=== PATIENT | female | born 1955 | race Caucasian/White ===

== ENCOUNTER 2024-12-25 05:13 | Inpatient (IN) | payer MEDICARE, OTHER ==
--- NOTE | 2024-12-25 05:34 | ED ---
Chest Pain HPI - General Chief Complaint: Chest Pain Stated Complaint: Nstemi Time Seen by Provider: 12/25/24 05:32 Source: patient, EMS Mode of arrival: EMS Limitations: no limitations - History of Present Illness Initial Comments: This patient is a 69-year-old woman transferred here from [facility] to be evaluated for chest pain. The patient states that the pain had come on tonight when she was getting ready to go to bed. She states that it started probably between 11 and midnight. She went directly to the other hospital. The patient states that once she got there and was treated the pain decreased and it has been mild since that time. She had evaluation at the other hospital including chest x-ray that was read as probably some chronic interstitial disease, she had EKG that they did not notice a change in, and she had 2 troponins, the second of which was mildly elevated and she was therefore transferred here to have further evaluation and treatment. She does see Dr. Burch from the cardiology clinic. Currently the pain is still mild. She is not having associated symptoms. She has history of previous NM with stent placement in 2000. MD Complaint: chest pain -: hour(s) Onset: during rest Pain Location: left chest Pain Radiation: none Severity: severe Quality: aching Consistency: now resolved (Partially) Improves With: medication-other Worsens With: nothing Treatments Prior to Arrival: aspirin, nitroglycerin, oxygen, other - Related Data Home Medications Medication Instructions Recorded Confirmed Ascorbic Acid [Vitamin C] 1,000 mg PO DAILY 12/25/24 12/25/24 Cholecalciferol (Vitamin D3) 50 mcg PO DAILY 12/25/24 12/25/24 [Vitamin D3 (50 Mcg = 2000 Iu)] Fenofibrate [Lofibra] 160 mg PO DAILY 12/25/24 12/25/24 Fish Oil/Dha/Epa [Fish Oil 1,200 4 cap PO DAILY 12/25/24 12/25/24 mg Fish Oil] Fluticasone Nasal [place] [Flonase 1 spray EA NOSTRIL DAILY 12/25/24 12/25/24 Nasal [place]] Irbesartan [Avapro] 300 mg PO DAILY 12/25/24 12/25/24 Loratadine [Claritin] 10 mg PO DAILY 12/25/24 12/25/24 Magnesium 250 mg PO DAILY 12/25/24 12/25/24 Melatonin 10 mg PO HS PRN 12/25/24 12/25/24 Multivit-Min/Iron Fum/Folic AC 1 tab PO DAILY 12/25/24 12/25/24 [One-A-Day Women's Complete Tab] Zinc Gluconate [Zinc] 50 mg PO DAILY 12/25/24 12/25/24 buPROPion XL [Wellbutrin XL] 150 mg PO DAILY 12/25/24 12/25/24 metFORMIN HCL 500 mg PO BID-W/MEALS 12/25/24 12/25/24 Previous Rx's Medication Instructions Recorded Aspirin EC [Ecotrin Low Dose] 81 mg PO DAILY #90 tab 12/27/24 Atorvastatin [Lipitor] 80 mg PO HS #90 tab 12/27/24 Metoprolol Tartrate [Lopressor] 50 mg PO BID #90 tab 12/27/24 Ticagrelor [Brilinta] 90 mg PO BID #90 tab 12/27/24 Allergies Allergy/AdvReac Type Severity Reaction Status Date / Time No Known Allergies Allergy Verified 12/25/24 08:15 Review of Systems ROS Statement: Those systems with pertinent positive or pertinent negative responses have been documented in the HPI. ROS Other: All systems not noted in ROS Statement are negative. Constitutional: Denies: fever, chills Respiratory: Denies: cough, dyspnea Cardiovascular: Reports: chest pain. Denies: palpitations, orthopnea, edema, syncope Gastrointestinal: Denies: abdominal pain, nausea, vomiting, diarrhea Genitourinary: Denies: dysuria Musculoskeletal: Denies: back pain Skin: Denies: rash Neurological: Denies: headache, weakness EKG Findings - EKG Comments: EKG Findings:: Possible old anterior infarct. - EKG Results: EKG: interpreted by CARLY, sinus rhythm (Rate 79 bpm) - Blocks, [place], Hypertrophy, ST Abn: AV and intraventricular conduction: right bundle branch block (fixed/intermittent, complete/incomplete), left anterior fascicular block Past Medical History Past Medical History: COPD, Diabetes Mellitus, Hyperlipidemia, Hypertension, Myocardial Infarction ([place]) History of Any Multi-Drug Resistant Organisms: None Reported Past Surgical History: Section, Cholecystectomy, Heart Catheterization With Stent Past Psychological History: No Psychological Hx Reported Smoking Status: Current every day smoker Past Alcohol Use History: None Reported Past Drug Use History: None Reported - Past Family History Sister(s) Family Medical History: Cancer Father Family Medical History: Coronary Artery Disease (CAD), Myocardial Infarction ([place]) Mother Family Medical History: Coronary Artery Disease (CAD), Myocardial Infarction ([place]) General Exam Limitations: no limitations General appearance: alert, in no apparent distress Head exam: Present: atraumatic, normocephalic Eye exam: Present: normal appearance. Absent: scleral icterus, conjunctival injection ENT exam: Present: normal oropharynx Neck exam: Present: normal inspection Respiratory exam: Present: normal lung sounds bilaterally. Absent: respiratory distress, wheezes, rales, rhonchi, stridor, accessory muscle use Cardiovascular Exam: Present: regular rate, normal rhythm, normal heart sounds. Absent: systolic murmur, diastolic murmur, rubs, gallop GI/Abdominal exam: Present: soft. Absent: distended, tenderness, guarding, rebound, rigid, mass Extremities exam: Present: normal inspection, normal capillary refill. Absent: pedal edema, calf tenderness Back exam: Present: normal inspection. Absent: CVA tenderness (R), CVA tenderness (L) Neurological exam: Present: alert Skin exam: Present: warm, dry, intact, normal color. Absent: rash Course Vital Signs 12/25/24 12/25/24 12/25/24 05:17 08:10 10:26 Temperature 98.3 F 98.0 F 97.7 F Pulse Rate 81 86 80 Respiratory 16 14 20 Rate Blood Pressure 138/77 148/81 134/79 O2 Sat by Pulse 96 96 92 L Oximetry Chest Pain MDM - MDM Was pt. sent in by a medical professional or institution ([facility]EL [facility]all[facility], NETWORK CABLER, urgent care, hospital, or [place] health care facility...) When possible be specific @ -Yes, patient sent from the outside hospital as a transfer here Did you speak to anyone other than the patient for history (EMS, parent, family, police, friend...)? What history was obtained from this source @ -No Did you review nursing and triage notes (agree or disagree)? Why? @ -I reviewed and agree with nursing and triage notes Were old charts reviewed (outside hosp., previous admission, EMS record, old EKG, old radiological studies, urgent care reports/EKG's, [place] health care facility records)? Report findings @ -The transfer charts were reviewed Differential Diagnosis (chest pain, altered mental status, abdominal pain women, abdominal pain men, vaginal bleeding, weakness, fever, dyspnea, syncope, headache, dizziness, GI bleed, back pain, seizure, CVA, palpatations, mental health, musculoskeletal)? @Differential Chest Pain: Stable Angina, Unstable Angina, STEMI, NSTEMI Aortic Dissection, Pneumothorax, Musculoskeletal, Esophageal Spasm GERD, Cholecystitis, Pancreatitis, Zoster, this is not meant to be an all-inclusive list. EKG interpreted by me (3pts min.). @ -I interpreted as above X-rays interpreted by me (1pt min.). @ -None done CT interpreted by me (1pt min.). @ -None done U/S interpreted by me (1pt. min.). @ -None done What testing was considered but not performed or refused? (CT, X-rays, U/S, labs)? Why? @ -None What meds were considered but not given or refused? Why? @ -None Did you discuss the management of the patient with other professionals (professionals i.e. , PA, NETWORK CABLER, lab, RT, psych nurse, home health care social worker, district court judge, teacher, control officer, briefcase sewer)? Give summary @ -Case discussed with admitting physician and treatment recommendations are incorporated Was smoking cessation discussed for >3mins.? @ -No Was critical care preformed (if so, how long)? @ -Yes, 30 minutes Were there social determinants of health that impacted care today? How? (Homelessness, low income, unemployed, alcoholism, drug addiction, transportation, low edu. Level, literacy, decrease access to med. care, assisted, rehab)? @ -No Was there de-escalation of care discussed even if they declined (Discuss DNR or withdrawal of care, Hospice)? DNR status @ -No What co-morbidities impacted this encounter? (DM, HTN, Smoking, COPD, CAD, Cancer, CVA, ARF, Chemo, Hep., AIDS, mental health diagnosis, sleep apnea, morbid obesity)? @ -Diabetes, hypertension, CAD Was patient admitted / discharged? Hospital course, mention meds given and route, prescriptions, significant lab abnormalities, going to OR and other pertinent info. @ -Patient is 69-year-old woman transferred here from outside hospital to have further cardiology care for an NSTEMI. The patient's symptoms had resolved, continued on IV heparin, and patient to have further cardiology care. Undiagnosed new problem with uncertain prognosis? @ -No Drug Therapy requiring intensive monitoring for toxicity (Heparin, Nitro, Insulin, Cardizem)? @ -IV heparin Were any procedures done? @ -No Diagnosis/symptom? @ -Acute NSTEMI Acute, or Chronic, or Acute on Chronic? @ -Acute Uncomplicated (without systemic symptoms) or Complicated (systemic symptoms)? @ -Uncomplicated Side effects of treatment? @ -No Exacerbation, Progression, or Severe Exacerbation? @ -No Poses a threat to life or bodily function? How? (Chest pain, [place], [place], pneumonia, PE, COPD, DKA, ARF, appy, cholecystitis, CVA, Diverticulitis, Homicidal, Suicidal, threat to staff... and all critical care pts) @ -Yes, requires for the cardiology care All treatments are based on ideal body weight as in ED triage Disposition Clinical Impression: NSTEMI (non-ST elevated myocardial infarction) Disposition: ADMITTED IP TO THIS HOSP Condition: Stable Is patient prescribed a controlled substance at d/c from ED?: No
[2024-12-25] MEDS ORDERED: HEPARIN SODIUM 1,000 UN/ML (10ML VL) IV PRN (05:41)
[2024-12-25 05:52] LABS: Basophils % (A) 0 %; Eosinophils # (A) 0.2 k/uL (0-0.7); Eosinophils % (A) 1 %; HGB 13.2 gm/dL (11.4-16.0); Lymphocytes # (A) 1.8 k/uL (1.0-4.8); Lymphocytes % (A) 14 %; MCH 27.9 pg (25.0-35.0); MCHC 31.4 g/dL (31.0-37.0); MCV 88.8 fL (80.0-100.0); Mean Platelet Volume 8.1; Monocytes # (A) 0.3 k/uL (0-1.0); Monocytes % (A) 2 %; Neutrophils # (A) 10.4 k/uL (1.3-7.7); Neutrophils % (A) 82 %; Platelet Count 393 k/uL (150-450); RBC 4.73 m/uL (3.80-5.40); RDW 14.5 % (11.5-15.5); WBC 12.7 k/uL (3.8-10.6)
[2024-12-25] MEDS: HEPARIN SOD,PORK IN 0.45% NACL 25,000 UNIT in 0.45% NACL 1 250ML.BAG IV SCH (05:57)
[2024-12-25] MEDS ORDERED: NITROGLYCERIN SL TABS 0.4 MG TAB SUBLINGUAL PRN ×2 (06:23→08:10)
[2024-12-25 06:33] LABS: ALT 19 U/L (4-34); AST 51 U/L (14-36); African American GFR (CKD) 70 (>60 ml/min/1.73 sqM); Alkaline Phosphatase 74 U/L (38-126); Anion Gap 8 mmol/L; Blood Urea Nitrogen 37 mg/dL (7-17); Calcium 9.7 mg/dL (8.4-10.2); Carbon Dioxide 25 mmol/L (22-30); Chloride 101 mmol/L (98-107); Glucose 165 mg/dL (74-99); Non-African American GFR(CKD) 61 (>60 ml/min/1.73 sqM); Potassium 4.4 mmol/L (3.5-5.1); Sodium 134 mmol/L (137-145); Total Bilirubin 0.5 mg/dL (0.2-1.3); Total Protein 6.9 g/dL (6.3-8.2)
[2024-12-25] MEDS ORDERED: ALPRAZolam 0.25 MG TAB PO PRN (08:10)
[2024-12-25] MEDS ORDERED: ALPRAZolam 0.5 MG TAB PO PRN (08:10)
[2024-12-25] MEDS: ATORVASTATIN 80 MG TAB PO STA (08:26)
[2024-12-25] MEDS: METOPROLOL TARTRATE 25 MG TAB PO SCH (08:26)
[2024-12-25] MEDS: ASPIRIN 325 MG TAB PO STA (08:26)
[2024-12-25] MEDS: NITROGLYCERIN OINT 1 INCH/GM PACKET TOPICAL SCH (08:28)
[2024-12-25] MEDS ORDERED: SODIUM CHLORIDE 0.9% 1,000 ML IV SCH (09:00)
[2024-12-25] MEDS: SODIUM CHLORIDE 0.9% 1,000 ML in EMPTY BAG 1 BAG IV SCH ×2 (09:22→16:02)
[2024-12-25] MEDS: LOSARTAN 50 MG TAB PO SCH (09:26)
[2024-12-25] MEDS ORDERED: DEXTROSE 50% SYRINGE 50 ML IVP PRN ×2 (10:50)
--- NOTE | 2024-12-25 11:07 | P.HPIM ---
History of Present Illness H&P Date: 12/25/24 Patient is a 69-year-old female with COPD, diabetes, hyperlipidemia, hypertension, CAD (with stent placement, follows with Dr. Garcia) and current daily smoker here for evaluation of chest pain as a transfer from [place]. Patient reported that she is began to have chest pain as she was getting ready for bed on 12/24 around 11 PM. She characterizes the pain as pressure that is substernal, nonradiating that is worse with exertion and relieved by rest. She immediately went to [place] and was evaluated. A chest x-ray read there showed some chronic interstitial disease. EKG from [place] showed no change. They ordered troponins and the second troponin was mildly elevated which led to transfer to our facility for higher care. During my assessment, she still currently had chest pain with a lower intensity of 1/10. She denied any associated symptoms. On admission: Vitals: 98.3 Fahrenheit, pulse rate 81, respiratory rate 16, blood pressure 138/77, O2 saturation 96% on 2 L nasal cannula Labs: WBC 12.7, hemoglobin 13.2, platelet count 293,000, sodium 134, potassium 4.4, bicarb 25, BUN 37, creatinine 0.96, glucose 165, calcium 9.7, magnesium 2. Troponins are elevated initial was 2.5, second is 5.8. Liver enzymes showed slightly elevated AST at 51. Coagulation panel showed PTT elevated at 50, PT normal at 11 and INR normal at 1. Imaging: EKG showed sinus rhythm with a rate of 79 bpm, left axis deviation, right bundle branch block with inverted T waves in V1 and V2, prolonged QRS duration 163 MS, QTc 457 MS. ED documentation reviewed. Heparin drip, aspirin, atorvastatin and metoprolol initiated in the ED. Review of systems: Pertinent positives and negatives as discussed in HPI, a complete review of systems was performed and all other systems are negative. Physical examination: Vital signs reviewed General: non toxic, no distress, appears at stated age Derm: no unusual rashes/lesions, warm Head: atraumatic, normocephalic, symmetric Eyes: EOMI, anicteric sclera, pupils equal round reactive to light ENT: Nose and ears atraumatic Neck: No cervical lymphadenopathy, trachea midline, supple Mouth: no lip lesion, mucus membranes moist Cardiovascular: S1S2 reg, no murmur Lungs: CTA bilateral, no rhonchi, no rales, no accessory muscle use Abdominal: soft, nondistended, nontender to palpation, no guarding Ext: muscle strength 5 out of 5 in all 4 extremities grossly, no gross muscle atrophy, no contractures, positive dorsalis pedis pulse bilateral, no edema Neuro: CN II-XI grossly intact, no gross focal neuro deficits Psych: Alert and oriented x 3, appropriate affect and mood Assessment/Plan: 69-year-old female with diabetes, hyperlipidemia, hypertension and CAD here for NSTEMI The patient is admitted with an anticipated greater than 2 midnight stay for evaluation of NSTEMI Active: #. NSTEMI, likely type I -Troponins elevated at 2.5 -> 5.8 -EKG showed sinus rhythm with a rate of 79 bpm, left axis deviation, right bundle branch block with inverted T waves in V1 and V2, prolonged QRS duration 163 MS, QTc 457 MS. -Cardiac monitoring -Supplemental oxygen as needed -Heart healthy diet -Trend troponin -EKG as needed -Echocardiogram ordered -Lipid panel ordered -Continue with heparin drip, monitor for APTT, monitor for bleeding -Nitroglycerin prn for chest pain. 0.4 mg PO or Nitrobid topical -Given aspirin 325 mg once in the ED -Continue with aspirin 81 mg daily -Continue lipitor 80 mg daily -Metoprolol tartarate 25mg PO twice daily -Cardiology consulted #. Diabetes with hyperglycemia -Glucose 165 -Check A1c -Insulin sliding scale ACHS -Glucose Accu-Cheks ACHS. Monitor for hypoglycemia Chronic Conditions: #. Hyperlipidemia #. Hypertension #. CAD -Resume oral Irbesartan, Lofibra, Wellbutrin -Hold metformin DVT ppx: IV heparin CODE STATUS: Full Discussed with: Patient Anticipated discharge place: Home Maisha Frederick MD PGY-1 Internal Medicine Dictation was produced using [employer] dictation software. please excuse any grammatical, word or spelling errors. The patient is admitted with an anticipated greater than 2 midnight stay as inpatient status for evaluation of NSTEMI. A total of 65 minutes was spent on the care of this complex patient more than 5 0% of the time was spent in counseling and care coordination. I have seen and evaluated the patient today. Discussed with the resident and agree with the residents finding and plan as documented in the resident's note. Changes highlighted in blue font. Past Medical History Past Medical History: COPD, Diabetes Mellitus, Hyperlipidemia, Hypertension, Myocardial Infarction ([place]) History of Any Multi-Drug Resistant Organisms: None Reported Past Surgical History: Section, Cholecystectomy, Heart Catheterization With Stent Past Psychological History: No Psychological Hx Reported Smoking Status: Current every day smoker Past Alcohol Use History: None Reported Past Drug Use History: None Reported - Past Family History Sister(s) Family Medical History: Cancer Father Family Medical History: Coronary Artery Disease (CAD), Myocardial Infarction ([place]) Mother Family Medical History: Coronary Artery Disease (CAD), Myocardial Infarction ([place]) Medications and Allergies Home Medications Medication Instructions Recorded Confirmed Type Ascorbic Acid [Vitamin C] 1,000 mg PO DAILY 12/25/24 12/25/24 History Aspirin EC [Ecotrin Low Dose] 81 mg PO DAILY 12/25/24 12/25/24 History Atorvastatin [Lipitor] 40 mg PO DAILY 12/25/24 12/25/24 History Cholecalciferol (Vitamin D3) 50 mcg PO DAILY 12/25/24 12/25/24 History [Vitamin D3 (50 Mcg = 2000 Iu)] Fenofibrate [Lofibra] 160 mg PO DAILY 12/25/24 12/25/24 History Fish Oil/Dha/Epa [Fish Oil 1,200 4 cap PO DAILY 12/25/24 12/25/24 History mg Fish Oil] Fluticasone Nasal [place] [Flonase 1 spray EA NOSTRIL DAILY 12/25/24 12/25/24 History Nasal [place]] Irbesartan [Avapro] 300 mg PO DAILY 12/25/24 12/25/24 History Loratadine [Claritin] 10 mg PO DAILY 12/25/24 12/25/24 History Magnesium 250 mg PO DAILY 12/25/24 12/25/24 History Melatonin 10 mg PO HS PRN 12/25/24 12/25/24 History Metoprolol Tartrate [Lopressor] 25 mg PO BID-W/MEALS 12/25/24 12/25/24 History Multivit-Min/Iron Fum/Folic AC 1 tab PO DAILY 12/25/24 12/25/24 History [One-A-Day Women's Complete Tab] Zinc Gluconate [Zinc] 50 mg PO DAILY 12/25/24 12/25/24 History buPROPion XL [Wellbutrin XL] 150 mg PO DAILY 12/25/24 12/25/24 History metFORMIN HCL 500 mg PO BID-W/MEALS 12/25/24 12/25/24 History Allergies Allergy/AdvReac Type Severity Reaction Status Date / Time No Known Allergies Allergy Verified 12/25/24 08:15 Physical Exam Vitals: Vital Signs Temp Pulse Resp BP Pulse Ox 12/25/24 05:17 98.3 F 81 16 138/77 96 Intake and Output 12/24/24 12/25/24 12/25/24 22:59 06:59 14:59 Other: Weight 71.214 kg Results CBC & Chem 7: 12/25/24 05:34 12/25/24 05:34 Labs: Abnormal Lab Results - Last 24 Hours (Table) 12/25/24 12/25/24 12/25/24 Range/Units 05:34 05:34 05:34 WBC 12.7 H (3.8-10.6) k/uL Neutrophils # 10.4 H (1.3-7.7) k/uL APTT 50.0 H (22.0-30.0) sec Sodium 134 L (137-145) mmol/L BUN 37 H (7-17) mg/dL Glucose 165 H (74-99) mg/dL AST 51 H (14-36) U/L Troponin I (0.000-0.034) ng/mL 12/25/24 Range/Units 05:34 WBC (3.8-10.6) k/uL Neutrophils # (1.3-7.7) k/uL APTT (22.0-30.0) sec Sodium (137-145) mmol/L BUN (7-17) mg/dL Glucose (74-99) mg/dL AST (14-36) U/L Troponin I 2.520 H* (0.000-0.034) ng/mL
--- NOTE | 2024-12-25 11:21 | P.CRDCN ---
History of Present Illness History of present illness: HISTORY OF PRESENT ILLNESS: This is a 69-year-old female with a past medical history significant for coronary artery disease, carotid stenosis, hyperlipidemia, diabetes and nicotine dependence. Patient follows in the office with Dr. Garcia. We have been asked to see the patient in consultation for non-STEMI. Patient examined at the bedside. Patient initially presented to [facility] for chief complaint of chest pain. Patient was found to have an elevated troponin and was transferred to [facility] for further evaluation. Patient's troponin at [facility] was 2.520. With repeat 5.870. Patient remains on IV heparin. Reports having some mild chest discomfort this morning. DIAGNOSTICS: - EKG reveals sinus mechanism with right bundle branch block.. - Laboratory data: WBC 12.7. Hemoglobin 13.2. Platelet count 393. Sodium 134. Potassium 4.4. BUN 37. Creatinine 0.96. Magnesium 2.0. Troponin 2.5-0. 5.870. - Current home cardiac medications include irbesartan 300 mg daily, metoprolol tartrate 25 mg twice a day, aspirin 81 mg daily, Lipitor 40 mg daily. - Most recent echocardiogram obtained in December 18, 2024 revealed ejection fraction 55 to 60%, moderate concentric LVH, mild mitral regurgitation, mild to moderate tricuspid regurgitation - Cardiac catheterization history: 1999 with stenting to the mid RCA REVIEW OF SYSTEMS: At the time of my exam: CONSTITUTIONAL: Denies fever or chills. HEENT: Denies blurred vision, vision changes, or eye pain. Denies hemoptysis CARDIOVASCULAR: Denies chest pain. Denies orthopnea. Denies PND. Denies palpitations RESPIRATORY: Denies shortness of breath. GASTROINTESTINAL: Denies abdominal pain. Denies nausea or vomiting. HEMATOLOGIC: Denies bleeding disorders. GENITOURINARY: Denies any blood in urine. SKIN: Denies pruitis. Denies rash. PHYSICAL EXAM: VITAL SIGNS: Reviewed. GENERAL: Well-developed in no acute distress. HEENT: Head is normocephalic. Pupils are equal, round. Sclerae anicteric. Mucous membranes of the mouth are moist. Neck supple. No JVD or thyromegaly LUNGS: Respirations even and unlabored. Lungs essentially clear to auscultation bilaterally. HEART: Regular rate and rhythm. S1 and S2 heard. ABDOMEN: Soft. Nondistended. Nontender. EXTREMITIES: Normal range of motion. No clubbing or cyanosis. Peripheral pulses intact. No lower extremity edema NEUROLOGIC: Awake and alert. Oriented x 3. ASSESSMENT: Non-STEMI Coronary artery disease with previous stenting of the RCA, 2000 History of carotid stenosis with previous right carotid endarterectomy Hyperlipidemia Diabetes Nicotine dependence PLAN: Obtain 2D echo to assess cardiac structure and function Continue IV heparin Add aspirin 81 mg daily and atorvastatin 80 mg at night Add metoprolol tartrate 25 mg twice a day Add Nitropaste Resume additional home cardiac medications Patient to undergo cardiac catheterization today with Dr. Garcia Smoking cessation recommended. Patient to be referred to [place] quit line upon discharge Further recommendations pending patient course Nurse practitioner note has been reviewed by physician. Signing provider agrees with the documented findings, assessment, and plan of care documented by SUGAR MIXER as a scribe. Past Medical History Past Medical History: COPD, Diabetes Mellitus, Hyperlipidemia, Hypertension, Myocardial Infarction (AR) History of Any Multi-Drug Resistant Organisms: None Reported Past Surgical History: Section, Cholecystectomy, Heart Catheterization With Stent Past Psychological History: No Psychological Hx Reported Smoking Status: Current every day smoker Past Alcohol Use History: None Reported Past Drug Use History: None Reported Medications and Allergies Home Medications Medication Instructions Recorded Confirmed Type Ascorbic Acid [Vitamin C] 1,000 mg PO DAILY 12/25/24 12/25/24 History Aspirin EC [Ecotrin Low Dose] 81 mg PO DAILY 12/25/24 12/25/24 History Atorvastatin [Lipitor] 40 mg PO DAILY 12/25/24 12/25/24 History Cholecalciferol (Vitamin D3) 50 mcg PO DAILY 12/25/24 12/25/24 History [Vitamin D3 (50 Mcg = 2000 Iu)] Fenofibrate [Lofibra] 160 mg PO DAILY 12/25/24 12/25/24 History Fish Oil/Dha/Epa [Fish Oil 1,200 4 cap PO DAILY 12/25/24 12/25/24 History mg Fish Oil] Fluticasone Nasal [place] [Flonase 1 spray EA NOSTRIL DAILY 12/25/24 12/25/24 History Nasal [place]] Irbesartan [Avapro] 300 mg PO DAILY 12/25/24 12/25/24 History Loratadine [Claritin] 10 mg PO DAILY 12/25/24 12/25/24 History Magnesium 250 mg PO DAILY 12/25/24 12/25/24 History Melatonin 10 mg PO HS PRN 12/25/24 12/25/24 History Metoprolol Tartrate [Lopressor] 25 mg PO BID-W/MEALS 12/25/24 12/25/24 History Multivit-Min/Iron Fum/Folic AC 1 tab PO DAILY 12/25/24 12/25/24 History [One-A-Day Women's Complete Tab] Zinc Gluconate [Zinc] 50 mg PO DAILY 12/25/24 12/25/24 History buPROPion XL [Wellbutrin XL] 150 mg PO DAILY 12/25/24 12/25/24 History metFORMIN HCL 500 mg PO BID-W/MEALS 12/25/24 12/25/24 History Allergies Allergy/AdvReac Type Severity Reaction Status Date / Time No Known Allergies Allergy Verified 12/25/24 08:15 Physical Exam Vitals: Vital Signs Temp Pulse Resp BP Pulse Ox 12/25/24 10:26 97.7 F 80 20 134/79 92 L 12/25/24 08:10 98.0 F 86 14 148/81 96 12/25/24 05:17 98.3 F 81 16 138/77 96 Intake and Output 12/24/24 12/25/24 12/25/24 22:59 06:59 14:59 Other: Weight 71.214 kg Results 12/25/24 05:34 12/25/24 05:34 Cardiac Enzymes 12/25/24 12/25/24 12/25/24 Range/Units 05:34 05:34 07:05 AST 51 H (14-36) U/L Troponin I 2.520 H* 5.870 H* (0.000-0.034) ng/mL Coagulation 12/25/24 Range/Units 05:34 PT 11.0 (10.0-12.5) sec APTT 50.0 H (22.0-30.0) sec CBC 12/25/24 Range/Units 05:34 WBC 12.7 H (3.8-10.6) k/uL RBC 4.73 (3.80-5.40) m/uL Hgb 13.2 (11.4-16.0) gm/dL Hct 42.0 (34.0-46.0) % Plt Count 393 (150-450) k/uL Comprehensive Metabolic Panel 12/25/24 Range/Units 05:34 Sodium 134 L (137-145) mmol/L Potassium 4.4 (3.5-5.1) mmol/L Chloride 101 (98-107) mmol/L Carbon Dioxide 25 (22-30) mmol/L BUN 37 H (7-17) mg/dL Creatinine 0.96 (0.52-1.04) mg/dL Glucose 165 H (74-99) mg/dL Calcium 9.7 (8.4-10.2) mg/dL AST 51 H (14-36) U/L ALT 19 (4-34) U/L Alkaline Phosphatase 74 (38-126) U/L Total Protein 6.9 (6.3-8.2) g/dL Albumin 4.0 (3.5-5.0) g/dL Current Medications Generic Name Dose Route Start Last Admin Trade Name Freq PRN Reason Stop Dose Admin Alprazolam 0.25 mg 12/25/24 08:10 Alprazolam 0.25 Mg Tab PO Q6HR PRN Mild Anxiety Alprazolam 0.5 mg 12/25/24 08:10 Alprazolam 0.5 Mg Tab PO Q6HR PRN Moderate Anxiety Aspirin 81 mg 12/26/24 09:00 Aspirin 81 Mg PO DAILY [facility] Atorvastatin Calcium 80 mg 12/26/24 21:00 Atorvastatin 80 Mg Tab PO HS [facility] Bupropion HCl 150 mg 12/26/24 09:00 Bupropion Xl 150 Mg Tab.Er.24h PO DAILY [facility] Dextrose/Water 25 ml 12/25/24 10:50 Dextrose 50% Syringe 50 Ml IVP PER PROTOCOL PRN Hypoglycemia Protocol Dextrose/Water 50 ml 12/25/24 10:50 Dextrose 50% Syringe 50 Ml IVP PER PROTOCOL PRN Hypoglycemia Protocol Fenofibrate 160 mg 12/26/24 09:00 Fenofibrate 160 Mg Tab PO DAILY [facility] Heparin Sodium (Porcine) 0 unit 12/25/24 05:41 Heparin Sodium 1,000 Un/Ml (10ml Vl) IV PER PROTOCOL PRN Low PTT Protocol Heparin Sodium/Sodium Chloride 250 mls @ 8.546 mls/hr 12/25/24 05:45 12/25/24 05:57 25,000 unit/ Sodium Chloride IV 12 units/kg/hr .Q24H BENI 8.546 mls/hr Administration Protocol 12 UNITS/KG/HR Heparin Sodium (Porcine) 10, 1,001 mls @ 999 mls/hr 12/26/24 07:00 000 unit/ Sodium Chloride IRRIGATION 12/26/24 23:00 ONCE PRN INTRA-OP Heparin Sodium (Porcine) 2,500 250.5 mls @ 250 mls/hr 12/26/24 07:00 unit/ Sodium Chloride IRRIGATION 12/26/24 23:00 ONCE PRN INTRA-OP Sodium Chloride 1,000 ml/ IV 1,000 mls @ 71.214 mls/hr 12/25/24 08:15 12/25/24 09:22 Solution IV 71.214 mls/hr .Q14H3M BENI Administration 1 ML/KG/HR Insulin Human Lispro 0 unit 12/25/24 12:30 Insulin Lispro (Humalog) 100 Unit/Ml 10 Ml Vl SQ ACHS BENI Protocol Losartan Potassium 100 mg 12/25/24 09:00 12/25/24 09:26 Losartan 50 Mg Tab PO 100 mg DAILY BENI Administration Metoprolol Tartrate 25 mg 12/25/24 09:00 12/25/24 08:26 Metoprolol Tartrate 25 Mg Tab PO 25 mg BID BENI Administration Nitroglycerin 0.5 inch 12/25/24 08:00 12/25/24 08:28 Nitroglycerin Oint 1 Inch/Gm Packet TOPICAL 0.5 inch Q8HR BENI Administration Nitroglycerin 0.4 mg 12/25/24 08:10 Nitroglycerin Sl Tabs 0.4 Mg Tab SUBLINGUAL Q5M PRN Chest Pain Intake and Output 12/24/24 12/25/24 12/25/24 22:59 06:59 14:59 Other: Weight 71.214 kg 12/25/24 05:34 12/25/24 05:34
[2024-12-25 11:36] LABS: Glucose,Whole Blood 125 mg/dL (70-110)
[2024-12-25] MEDS: INSULIN LISPRO (HumaLOG) 100 UNIT/ML 10 mL VL SQ SCH (11:41)
[2024-12-25] MEDS: HEPARIN SODIUM,PORCINE 10,000 UNIT in SODIUM CHLORIDE 0.9% 1,000 ML IRRIGATION ONE (13:12)
[2024-12-25] MEDS: HEPARIN SODIUM,PORCINE (1 ML) 2,500 UNIT in SODIUM CHLORIDE 0.9% 250 ML IRRIGATION ONE (13:12)
[2024-12-25] MEDS: SODIUM CHLORIDE 0.9% 1,000 ML IV ONE (13:12)
[2024-12-25] MEDS: MIDAZOLAM 2 MG/2 ML VIAL IVP ONE ×3 (13:49→14:23)
[2024-12-25] MEDS: fentaNYL (PF) 50 MCG/ML 2 ML AMP IVP ONE ×3 (13:50→14:23)
[2024-12-25] MEDS: LIDOCAINE 1% INJ 10MG/ML (20 ML MDV) SQ ONE (13:51)
[2024-12-25] MEDS: VERAPAMIL SYRINGE (5 MG/10 ML) INTRAARTER ONE (13:52)
[2024-12-25] MEDS: HEPARIN SODIUM 1,000 UN/ML (10ML VL) IVP ONE ×3 (13:58→14:26)
[2024-12-25] MEDS: NITROGLYCERIN 1000MCG/10ML SYRINGE INTRACORON ONE (14:24)
[2024-12-25] MEDS: IOPAMIDOL-370 100ML BTL INJ ONE ×2 (15:02)
[2024-12-25] MEDS ORDERED: ZOLPIDEM 5 MG TAB PO PRN (15:53)
[2024-12-25] MEDS ORDERED: MAG HYDROX/AL HYDROX/SIMETH 30 ML CUP PO PRN (15:53)
[2024-12-25] MEDS ORDERED: RX INFO: IV CONTRAST WAS GIVEN 1 EACH MISC MISCELLANE PRN (15:53)
[2024-12-25] MEDS ORDERED: ATROPINE SULFATE 0.1 MG/ML 10ML SYRINGE IV PRN (15:53)
--- NOTE | 2024-12-25 16:04 | P.PRCINT ---
Percutaneous Coronary Int. - Percutaneous Coronary Intervention Percutaneous Coronary Intervention: PROCEDURES PERFORMED: Left coronary angiography, PCI proximal to mid ramus with overlapping 3.0 x 15 and 3.0 x 38mm Xience HUMPHREY, post dilated with 3.0mm NC balloon, IVUS ramus, Shockwave lithotripsy of raums with a 2.5mm balloon INDICATION: NSTEMI, NYHA class 4 symptoms, chest pain at rest CONSENT:I have discussed the risks, benefits and alternative therapies for the above-mentioned procedure and for both sedation/analgesia as well as necessary blood product administration, if indicated, as they pertain to this patient. The patient has indicated understanding and acceptance of the risks and procedures discussed. PROCEDURE: After the risks, benefits and alternatives of the above mentioned procedure explained in detail with the patient, informed consent was obtained. Patient was taken to the catheterization lab and prepped and draped in usual fashion. A 6-Czech sheath had previously been placed in the right radial artery. The decision was made to perform PCI of the ramus. A 6Fr CLS 3.5 guide was used to engage the left main. A 0.014 BMW wire was attempted with some difficulty advancing past the mid lesion and therefore a 0.014 whisper wire was used and passed easily. Next balloon angioplasty was performed with a 2.5mm balloon. IVUS showed diffuse calcification and reference vessel 2.75-3.0mm. Next shockwave lithotripsy was performed with a 2.5mm balloon. A 3.0 x 38mm HUMPHREY and additionally 3.0 x 15mm HUMPHREY were placed from the proximal to mid ramus. The stent was post dilated with a 3.0mm NC balloon. Final angiograms were performed. Preintervention there was 100% stenosis and EDWIN 0 flow and post intervention there was <10% stenosis and EDWIN 3 flow. The right radial sheath was removed and a TR band was placed with hemostasis achieved. The patient tolerated the procedure well. Patient was transported back to the post catheterization holding area in stable condition. Conscious Sedation: Patient was monitored under the direct supervision of myself for conscious sedation using Versed and fentanyl for a total duration of 46 minutes HEMODYNAMICS: Ao: 138/81 SELECTIVE CORONARY ARTERIOGRAPHY: LEFT MAIN: The left main is a large caliber vessel which bifurcates into the LAD, ramus and circumflex. There is no significant stenosis. LEFT ANTERIOR DESCENDING CORONARY ARTERY: LAD is a large caliber vessel which wraps around to the apex. There is mid LAD 50% stenosis and otherwise mild disease. There are left to right collaterals. RAMUS INTERMEDIUS: The ramus has a 100% proximal stenosis LEFT CIRCUMFLEX CORONARY ARTERY: Left circumflex is a small caliber vessel with mild 20% stenosis. RIGHT CORONARY ARTERY: Not imaged however 100% stenosis with left to right collaterals FINAL IMPRESSION: 1. CAD as described above including 100% RCA, 100% Ramus, 50% mid LAD. 2. S/p PCI proximal to mid ramus with overlapping 3.0 x 15 and 3.0 x 38mm Xience HUMPHREY PLAN: 1. Aggressive risk factor modification per most recent ACC/AHA guidelines. 2. Continue dual antiplatelets with aspiring and Brillinta for 12 months. 3. 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
[2024-12-25 17:15] LABS: Glucose,Whole Blood 134 mg/dL (70-110)
[2024-12-25 19:51] LABS: Glucose,Whole Blood 136 mg/dL (70-110)
[2024-12-25] MEDS: TICAGRELOR 90 MG TAB PO SCH (20:28)
[2024-12-25] MEDS ORDERED: ATORVASTATIN 40 MG TAB PO SCH (21:00)
[2024-12-26 05:44] LABS: Glucose,Whole Blood 137 mg/dL (70-110)
[2024-12-26 06:56] LABS: Basophils % (A) 0 %; Eosinophils # (A) 0.1 k/uL (0-0.7); Eosinophils % (A) 1 %; HCT 38.9 % (34.0-46.0); HGB 12.3 gm/dL (11.4-16.0); Lymphocytes # (A) 2.1 k/uL (1.0-4.8); Lymphocytes % (A) 19 %; MCH 27.7 pg (25.0-35.0); MCHC 31.6 g/dL (31.0-37.0); MCV 87.8 fL (80.0-100.0); Mean Platelet Volume 7.3; Monocytes # (A) 0.7 k/uL (0-1.0); Monocytes % (A) 7 %; Neutrophils % (A) 72 %; Platelet Count 335 k/uL (150-450); RBC 4.43 m/uL (3.80-5.40); RDW 14.3 % (11.5-15.5); WBC 11.1 k/uL (3.8-10.6)
[2024-12-26] MEDS ORDERED: HEPARIN SODIUM,PORCINE 10,000 UNIT in SODIUM CHLORIDE 0.9% 1,000 ML IRRIGATION PRN (07:00)
[2024-12-26] MEDS ORDERED: HEPARIN SODIUM,PORCINE (1 ML) 2,500 UNIT in SODIUM CHLORIDE 0.9% 250 ML IRRIGATION PRN (07:00)
[2024-12-26 07:05] LABS: African American GFR (CKD) >90 (>60 ml/min/1.73 sqM); Anion Gap 5 mmol/L; Blood Urea Nitrogen 19 mg/dL (7-17); Calcium 9.3 mg/dL (8.4-10.2); Carbon Dioxide 27 mmol/L (22-30); Chloride 101 mmol/L (98-107); Glucose 135 mg/dL (74-99); Non-African American GFR(CKD) 82 (>60 ml/min/1.73 sqM); Potassium 4.1 mmol/L (3.5-5.1); Sodium 133 mmol/L (137-145)
[2024-12-26 07:13] LABS: Prothrombin Time 11.4 sec (10.0-12.5)
[2024-12-26] MEDS: FENOFIBRATE 160 MG TAB PO SCH (07:45)
[2024-12-26] MEDS: buPROPion XL 150 MG TAB.ER.24H PO SCH (07:45)
[2024-12-26] MEDS: ASPIRIN 81 MG PO SCH (07:45)
[2024-12-26] MEDS ORDERED: ASPIRIN 325 MG TAB PO SCH (09:00)
[2024-12-26 10:23] LABS: Chol/HDL Ratio 2.92 Ratio; LDL Cholesterol,Calculated 64.7 mg/dL (0.0-131.0)
--- NOTE | 2024-12-26 12:59 | P.PN ---
Subjective HISTORY OF PRESENT ILLNESS: This is a 69-year-old female with a past medical history significant for coronary artery disease, carotid stenosis, hyperlipidemia, diabetes and nicotine dependence. Patient follows in the office with Dr. Garcia. We have been asked to see the patient in consultation for non-STEMI. Patient examined at the bedside. Patient initially presented to [facility] for chief complaint of chest pain. Patient was found to have an elevated troponin and was transferred to [facility] for further evaluation. Patient's troponin at [facility] was 2.520. With repeat 5.870. Patient remains on IV heparin. Reports having some mild chest discomfort this morning. DIAGNOSTICS: - EKG reveals sinus mechanism with right bundle branch block.. - Laboratory data: WBC 12.7. Hemoglobin 13.2. Platelet count 393. Sodium 134. Potassium 4.4. BUN 37. Creatinine 0.96. Magnesium 2.0. Troponin 2.5-0. 5.870. - Current home cardiac medications include irbesartan 300 mg daily, metoprolol tartrate 25 mg twice a day, aspirin 81 mg daily, Lipitor 40 mg daily. - Most recent echocardiogram obtained in December 18, 2024 revealed ejection fraction 55 to 60%, moderate concentric LVH, mild mitral regurgitation, mild to moderate tricuspid regurgitation - Cardiac catheterization history: 1999 with stenting to the mid RCA 12/26/2024 Patient is status post cardiac catheterization. She underwent stenting of the proximal to mid ramus with overlapping drug-eluting stents. PHYSICAL EXAM: VITAL SIGNS: Reviewed. GENERAL: Well-developed in no acute distress. HEENT: Head is normocephalic. Pupils are equal, round. Sclerae anicteric. Mucous membranes of the mouth are moist. Neck supple. No JVD or thyromegaly LUNGS: Respirations even and unlabored. Lungs essentially clear to auscultation bilaterally. HEART: Regular rate and rhythm. S1 and S2 heard. ABDOMEN: Soft. Nondistended. Nontender. EXTREMITIES: Normal range of motion. No clubbing or cyanosis. Peripheral pulses intact. No lower extremity edema NEUROLOGIC: Awake and alert. Oriented x 3. 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 Await results. Continue dual antiplatelet therapy for 12 months Continue high intensity statin. LDL goal less than 70. Continue additional cardiac medications Smoking cessation recommended. Patient to be referred to [place] quit line upon discharge Further recommendations pending patient course Nurse practitioner note has been reviewed by physician. Signing provider agrees with the documented findings, assessment, and plan of care documented by VIRTUAL CLASSROOM MANAGER as a scribe. Objective - Vital Signs Vital signs: Vital Signs Temp 98.6 F 12/26/24 12:24 Pulse 76 12/26/24 12:24 Resp 14 12/26/24 12:24 BP 90/53 12/26/24 12:24 Pulse Ox 99 12/26/24 12:24 FiO2 Intake & Output 12/25/24 12/26/24 12/26/24 18:59 06:59 18:59 Intake Total 403.697 118 Balance 403.697 118 Weight 71.214 kg 69.3 kg Intake: IV 350 Intake, IV Titration 53.697 Amount Heparin Sod,Pork in 0.45% 53.697 NaCl 25,000 unit In 0.45 % NaCl 1 250ml.bag @ 12 UNITS/KG/HR 8.546 mls/hr IV .Q24H BENI Rx#: [id number] Oral 0 118 Other: # Voids 1 2 - Labs CBC & Chem 7: 12/26/24 06:06 12/26/24 06:06 Labs: Abnormal Lab Results - Last 24 Hours (Table) 12/25/24 12/25/24 12/26/24 Range/Units 17:14 19:50 05:43 WBC (3.8-10.6) k/uL Neutrophils # (1.3-7.7) k/uL Sodium (137-145) mmol/L BUN (7-17) mg/dL Glucose (74-99) mg/dL POC Glucose (mg/dL) 134 H 136 H 137 H (70-110) mg/dL Hemoglobin A1c (<=6.0) % 12/26/24 12/26/24 12/26/24 Range/Units 06:06 06:06 06:06 WBC 11.1 H (3.8-10.6) k/uL Neutrophils # 8.0 H (1.3-7.7) k/uL Sodium 133 L (137-145) mmol/L BUN 19 H (7-17) mg/dL Glucose 135 H (74-99) mg/dL POC Glucose (mg/dL) (70-110) mg/dL Hemoglobin A1c 6.3 H (<=6.0) %
[2024-12-26 13:17] VITALS: BMI 25.4
--- NOTE | 2024-12-26 14:27 | P.PN ---
Subjective Progress Note Date: 12/26/24 Patient is a 69-year-old female with COPD, diabetes, hyperlipidemia, hypertension, CAD (with stent placement, follows with Dr. Garcia) and current daily smoker here for evaluation of chest pain as a transfer from [facility]. Patient reported that she is began to have chest pain as she was getting ready f or bed on 12/24 around 11 PM. She characterizes the pain as pressure that is substernal, nonradiating that is worse with exertion and relieved by rest. She immediately went to [facility] and was evaluated. A chest x-ray read there showed some chronic interstitial disease. EKG from [facility] showed no change. They ordered troponins and the second troponin was mildly elevated which led to transfer to our facility for higher care. During my assessment, she still currently had chest pain with a lower intensity of 1/10. She denied any associated symptoms. On admission: Vitals: 98.3 Fahrenheit, pulse rate 81, respiratory rate 16, blood pressure 138/77, O2 saturation 96% on 2 L nasal cannula Labs: WBC 12.7, hemoglobin 13.2, platelet count 293,000, sodium 134, potassium 4.4, bicarb 25, BUN 37, creatinine 0.96, glucose 165, calcium 9.7, magnesium 2. Troponins are elevated initial was 2.5, second is 5.8. Liver enzymes showed slightly elevated AST at 51. Coagulation panel showed PTT elevated at 50, PT normal at 11 and INR normal at 1. Imaging: EKG showed sinus rhythm with a rate of 79 bpm, left axis deviation, right bundle branch block with inverted T waves in V1 and V2, prolonged QRS duration 163 MS, QTc 457 MS. 12/26/2024 patient seen and examined at bedside. No acute events overnight. POD 1 Labs: WBC 11.1, hemoglobin 12.3, platelet count 335,000, sodium 133, potassium 4.1, bicarb 27, creatinine 0.75, glucose 135, calcium 9.3. A1c 6.3. Lipid panel unremarkable particular LDL 64.7, triglycerides 107. Heparin drip discontinued Review of systems: Pertinent positives and negatives as discussed in HPI, a complete review of systems was performed and all other systems are negative. Physical examination: Vital signs reviewed General: non toxic, no distress, appears at stated age Derm: no unusual rashes/lesions, warm Head: atraumatic, normocephalic, symmetric Eyes: EOMI, anicteric sclera, pupils equal round reactive to light ENT: Nose and ears atraumatic Neck: No cervical lymphadenopathy, trachea midline, supple Mouth: no lip lesion, mucus membranes moist Cardiovascular: S1S2 reg, no murmur Lungs: CTA bilateral, no rhonchi, no rales, no accessory muscle use Abdominal: soft, nondistended, nontender to palpation, no guarding Ext: muscle strength 5 out of 5 in all 4 extremities grossly, no gross muscle atrophy, no contractures, positive dorsalis pedis pulse bilateral, no edema Neuro: CN II-XI grossly intact, no gross focal neuro deficits Psych: Alert and oriented x 3, appropriate affect and mood Assessment/Plan: 69-year-old female with diabetes, hyperlipidemia, hypertension and CAD here for NSTEMI The patient is admitted with an anticipated greater than 2 midnight stay for evaluation of NSTEMI Active: #. NSTEMI, likely type I status post PCI with stent placement x2 POD 1 - Cardiac cath showed 100% RCA, 100% Ramus, 50% mid LAD with x2 stent placement in the proximal to mid ramus -Cardiac monitoring -Supplemental oxygen as needed -Heart healthy diet -EKG as needed -Echocardiogram pending -Lipid panel normal -Nitroglycerin prn for chest pain -Continue with aspirin 81 mg daily -Continue lipitor 80 mg daily -Metoprolol tartarate 50mg PO twice daily per cardiology -Cardiology consulted. Initiated brilinta, Lipitor 80mg #. Diabetes with hyperglycemia, controlled -Glucose 135 -A1c 6.3 -Insulin sliding scale ACHS -Glucose Accu-Cheks ACHS. Monitor for hypoglycemia Chronic Conditions: #. Hyperlipidemia #. Hypertension #. CAD -Resume oral Irbesartan, Lofibra, Wellbutrin -Hold metformin DVT ppx: Lovenox subcu CODE STATUS: Full Discussed with: Patient Anticipated discharge place: Home Maisha Frederick MD PGY-1 Internal Medicine Dictation was produced using [employer] dictation software. please excuse any grammatical, word or spelling errors. I have seen and evaluated the patient today. Discussed with the resident and agree with the residents finding and plan as documented in the resident's note. Changes highlighted in blue font. Objective - Vital Signs Vital signs: Vital Signs Temp 98.6 F 12/26/24 12:24 Pulse 76 12/26/24 12:24 Resp 14 12/26/24 12:24 BP 90/53 12/26/24 12:24 Pulse Ox 99 12/26/24 12:24 FiO2 Intake & Output 12/25/24 12/26/24 12/26/24 18:59 06:59 18:59 Intake Total 403.697 236 Balance 403.697 236 Weight 71.214 kg 69.3 kg 69.3 kg Intake: IV 350 Intake, IV Titration 53.697 Amount Heparin Sod,Pork in 0.45% 53.697 NaCl 25,000 unit In 0.45 % NaCl 1 250ml.bag @ 12 UNITS/KG/HR 8.546 mls/hr IV .Q24H BENI Rx#: [id number] Oral 0 236 Other: # Voids 1 2 1 - Labs CBC & Chem 7: 12/26/24 06:06 12/26/24 06:06 Labs: Abnormal Lab Results - Last 24 Hours (Table) 12/25/24 12/25/24 12/26/24 Range/Units 17:14 19:50 05:43 WBC (3.8-10.6) k/uL Neutrophils # (1.3-7.7) k/uL Sodium (137-145) mmol/L BUN (7-17) mg/dL Glucose (74-99) mg/dL POC Glucose (mg/dL) 134 H 136 H 137 H (70-110) mg/dL Hemoglobin A1c (<=6.0) % 12/26/24 12/26/24 12/26/24 Range/Units 06:06 06:06 06:06 WBC 11.1 H (3.8-10.6) k/uL Neutrophils # 8.0 H (1.3-7.7) k/uL Sodium 133 L (137-145) mmol/L BUN 19 H (7-17) mg/dL Glucose 135 H (74-99) mg/dL POC Glucose (mg/dL) (70-110) mg/dL Hemoglobin A1c 6.3 H (<=6.0) %
--- NOTE | 2024-12-26 15:03 | CA ---
Transthoracic Echo Report Name: Kelley Silveira Age: 69 Gender: F : 1955 Exam Date: 12/26/2024 07:59 Exam Location: [facility] Ht (in): 65 Wt (lb): 157 Ordering Physician: Winnie Velez Attending/Referring Phys: [id number], [facility] Dermatologist Bonny Washington RDCS Procedure CPT: Indications: LV function, CP, NSTEMI Cardiac Hx: 4 stents total Technical Quality: Technically difficult study Contrast 1: Definity Total Dose (mL): 3 Contrast 2: Total Dose (mL): MEASUREMENTS (Male / Female) Normal Values 2D ECHO LV Diastolic Diameter PLAX 5.1 cm 4.2 - 5.9 / 3.9 - 5.3 cm LV Systolic Diameter PLAX 3.8 cm IVS Diastolic Thickness 0.6 cm 0.6 - 1.0 / 0.6 - 0.9 cm LVPW Diastolic Thickness 1.0 cm 0.6 - 1.0 / 0.6 - 0.9 cm LV Relative Wall Thickness 0.3 LVOT Diameter 2.0 cm LV Diastolic Volume MOD BP 97.9 cm??? 67 - 155 / 56 - 104 cm??? LV Systolic Volume MOD BP 48.1 cm??? 22 - 58 / 19 - 49 cm??? LV Ejection Fraction MOD BP 50.9 % >= 55 % LV Cardiac Index MOD BP 2404.7 cm???/min???m??? LV Diastolic Volume MOD 4C 107.1 cm??? LV Systolic Volume MOD 4C 53.8 cm??? LV Ejection Fraction MOD 4C 49.8 % LV Cardiac Index MOD 4C 2576.9 cm???/min???m??? LV Diastolic Length 4C 8.3 cm LV Systolic Length 4C 7.2 cm LV Diastolic Volume MOD 2C 88.3 cm??? LV Systolic Volume MOD 2C 41.1 cm??? LV Ejection Fraction MOD 2C 53.5 % LV Cardiac Index MOD 2C 2282.9 cm???/min???m??? LV Diastolic Length 2C 8.1 cm LV Systolic Length 2C 6.9 cm DOPPLER AV Peak Velocity 184.2 cm/s AV Peak Gradient 13.6 mmHg AV Mean Velocity 123.2 cm/s AV Mean Gradient 6.9 mmHg AV Velocity Time Integral 33.2 cm LVOT Peak Velocity 106.4 cm/s LVOT Peak Gradient 4.5 mmHg LVOT Velocity Time Integral 18.3 cm LVOT Stroke Volume 54.8 cm??? LVOT Stroke Volume Index 30.7 ml/m??? LVOT Cardiac Index 2649.2 cm???/min???m??? AV Area Cont Eq vti 1.6 cm??? AV Area Cont Eq pk 1.7 cm??? MV Peak Velocity 176.4 cm/s MV Peak Gradient 12.4 mmHg MV Mean Velocity 130.1 cm/s MV Mean Gradient 7.4 mmHg MV Velocity Time Integral 28.8 cm MV Area PHT 3.9 cm??? Mitral E Point Velocity 56.1 cm/s Mitral A Point Velocity 124.6 cm/s Mitral E to A Ratio 0.5 MV Deceleration Time 75.3 ms MV E' Velocity 2.3 cm/s Mitral E to MV E' Ratio 24.6 FINDINGS Left Ventricle Left ventricular ejection fraction is estimated at 50 %. Mildly increased posterior wall thickness. Mildly decreased left ventricular ejection fraction. Mild global decrease in contractility noted Right Ventricle Normal right ventricular size and function. Unable to estimate the right ventricular systolic pressure. Right Atrium Normal right atrial size. Left Atrium Normal left atrial size. Mitral Valve Mitral valve thickened. Posterior mitral leaflet has significant amount of calcification and thickening. Mitral annulus is calcified. There is calcific mitral stenosis. Mitral valve thickened. No evidence for mitral valve prolapse. Moderate mitral stenosis 9mmHg. Trace mitral regurgitation. Aortic Valve Aortic valve not well visualized. No aortic stenosis. Mild aortic regurgitation. Tricuspid Valve Structurally normal tricuspid valve. No tricuspid stenosis. No tricuspid regurgitation. Pulmonic Valve Pulmonic valve not well visualized. Pericardium No pericardial effusion. Aorta Aortic annulus normal. Ascending aorta not well visualized. CONCLUSIONS Mildly impaired LV systolic function globally. Calcific mitral stenosis with mitral annular calcification and thickening of posterior mitral leaflet. Mild mitral tricuspid and aortic insufficiency. No pericardial effusion. Technically difficult study. Right-sided pressures were not quantified Previewed by: Dr. Parrish Figueroa MD (Electronically Signed) Final Date: 26 December 2024 15:03
[2024-12-26] MEDS: LORATADINE 10 MG TAB PO SCH (15:04)
--- NOTE | 2024-12-26 16:32 | XR ---
EXAMINATION TYPE: XR chest 1V portable DATE OF EXAM: 12/26/2024 4:27 PM COMPARISON: None. CLINICAL INDICATION: Female, 69 years old with history of SOB, TECHNIQUE: XR chest 1V portable views of the chest are obtained. FINDINGS: Demonstrated are scattered senescent parenchymal change. There is no evidence for focal infiltrate. The heart is stable. Hilar and mediastinal structures are within normal limits. Degenerative changes are seen of the dorsal spine. IMPRESSION: 1. Chronic changes without evidence for acute pulmonary disease. [facility], , 12/26/2024 4:29 PM
[2024-12-26] MEDS: METOPROLOL TARTRATE 50 MG TAB PO SCH (20:44)
[2024-12-26] MEDS: ATORVASTATIN 80 MG TAB PO SCH (20:44)
[2024-12-27 05:55] VITALS: TEMP 98.2
[2024-12-27 07:34] LABS: Basophils % (A) 0 %; Eosinophils # (A) 0.2 k/uL (0-0.7); Eosinophils % (A) 2 %; HCT 38.3 % (34.0-46.0); HGB 12.3 gm/dL (11.4-16.0); Lymphocytes # (A) 2.5 k/uL (1.0-4.8); Lymphocytes % (A) 28 %; MCH 27.9 pg (25.0-35.0); Mean Platelet Volume 7.6; Monocytes # (A) 0.6 k/uL (0-1.0); Monocytes % (A) 7 %; Neutrophils # (A) 5.5 k/uL (1.3-7.7); Neutrophils % (A) 61 %; Platelet Count 339 k/uL (150-450); RDW 14.1 % (11.5-15.5)
[2024-12-27 07:48] LABS: African American GFR (CKD) >90 (>60 ml/min/1.73 sqM); Anion Gap 2 mmol/L; Blood Urea Nitrogen 20 mg/dL (7-17); Calcium 9.7 mg/dL (8.4-10.2); Carbon Dioxide 27 mmol/L (22-30); Chloride 104 mmol/L (98-107); Glucose 120 mg/dL (74-99); Non-African American GFR(CKD) >90 (>60 ml/min/1.73 sqM); Potassium 4.5 mmol/L (3.5-5.1); Sodium 133 mmol/L (137-145)
[2024-12-27] MEDS: ENOXAPARIN 40 MG/0.4 ML SYRINGE SQ SCH (09:11)
[2024-12-27 12:53] VITALS: BP 92/58; PULSE 60; RESP 16
--- NOTE | 2024-12-27 13:29 | P.PN ---
Subjective Progress Note Date: 12/27/24 Patient is a 69-year-old female who follows in the office with Dr. Burch. Patient was admitted for non-ST elevated myocardial infarction. Patient underwent cardiac cath with stenting of the proximal to mid ramus intermedius. Patient has done well postoperatively. She is up ambulating around her room wit hout any chest pain or pressure. No difficulty breathing. GENERAL: Well-appearing, well-nourished and in no acute distress. NECK: Supple without JVD or thyromegaly. LUNGS: Breath sounds clear to auscultation bilaterally. Respiration equal and unlabored. No wheezes, rales or rhonchi. HEART: Regular rate and rhythm without murmurs, rubs or gallops. S1 and S2 heard. EXTREMITIES: Normal range of motion, no edema. No clubbing or cyanosis. Peripheral pulses intact and strong. 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 Garcia I am dictating on behalf of Dr Eric Forrester's history/physical and assessment/plan. Objective - Vital Signs Vital signs: Vital Signs Temp 98.2 F 12/27/24 08:55 Pulse 71 12/27/24 08:55 Resp 14 12/27/24 08:55 BP 100/54 12/27/24 08:55 Pulse Ox 96 12/27/24 08:55 FiO2 Intake & Output 12/26/24 12/27/24 12/27/24 18:59 06:59 18:59 Intake Total 354 670 Balance 354 670 Weight 69.3 kg 69.3 kg Intake: IV 10 Invasive Line 1 10 Oral 354 660 Other: Voiding Method Toilet Toilet Toilet # Voids 2 2 - Labs CBC & Chem 7: 12/27/24 06:24 12/27/24 06:24 Labs: Abnormal Lab Results - Last 24 Hours (Table) 12/26/24 12/27/24 Range/Units 06:06 06:24 Sodium 133 L (137-145) mmol/L BUN 20 H (7-17) mg/dL Glucose 120 H (74-99) mg/dL Hemoglobin A1c 6.3 H (<=6.0) %
--- NOTE | 2024-12-27 13:58 | P.DS ---
Providers Date of admission: 12/25/24 06:26 Attending physician: Shravan Ugarte MD Consults: 12/25/24 06:23 Consult Physician Routine Consulting Provider: Nnamdi Garcia Consult Reason/Comments: NSTEMI Do you want consulting provider notified?: Yes 12/25/24 15:53 Consult Physician Routine Consulting Provider: [facility] Consult Reason/Comments: Post Interventional Patient Do you want consulting provider notified?: Already Contacted Primary care physician: Franco Damon Hospital Course: Hospital Course: Patient is a 69-year-old female with COPD, diabetes, hyperlipidemia, hypert ension, CAD (with stent placement, follows with Dr. Garcia) and current daily smoker here for evaluation of chest pain as a transfer from [place]. On admission: Vitals: 98.3 Fahrenheit, pulse rate 81, respiratory rate 16, blood pressure 138/77, O2 saturation 96% on 2 L nasal cannula Labs: WBC 12.7, hemoglobin 13.2, platelet count 293,000, sodium 134, potassium 4.4, bicarb 25, BUN 37, creatinine 0.96, glucose 165, calcium 9.7, magnesium 2. Troponins are elevated initial was 2.5, second is 5.8. Liver enzymes showed slightly elevated AST at 51. Coagulation panel showed PTT elevated at 50, PT normal at 11 and INR normal at 1. Imaging: EKG showed sinus rhythm with a rate of 79 bpm, left axis deviation, right bundle branch block with inverted T waves in V1 and V2, prolonged QRS duration 163 MS, QTc 457 MS. Patient was admitted for an evaluation of NSTEMI likely type I. Cardiac monitoring, heparin drip, echocardiogram, nitroglycerin, aspirin, Lipitor, metoprolol, A1c, lipid panel and TSH were ordered. Cardiology was consulted. Cardiac cath was recommended and showed 100% RCA, 100% Ramus, 50% mid LAD with x2 stent placement in the proximal to mid ramus. A1c was at 6.3, lipid panel was unremarkable, and TSH was normal. Patient symptoms improved and no new complications occurred in the hospital. Patient is cleared for discharge today and is prescribed Brilinta, metoprolol and atorvastatin with an increased dose. She is advised to continue her home aspirin and the rest of her home medications. She is advised to follow-up with her PCP and news correspondent on outpatient basis. Final Diagnosis: #. NSTEMI, status post stenting x2 of the proximal to mid ramus intermedius #. Diabetes with hyperglycemia, controlled #. Hyperlipidemia #. Hypertension #. CAD #. Current daily smoker Physical examination: Vital signs reviewed General: non toxic, no distress Derm: no unusual rashes/lesions, warm Head: atraumatic, normocephalic, symmetric Eyes: EOMI, anicteric sclera, pupils equal round reactive to light ENT: Nose and ears atraumatic Neck: No cervical lymphadenopathy, trachea midline, supple Mouth: no lip lesion, mucus membranes moist Cardiovascular: S1S2 reg, no murmur Lungs: CTA bilateral, no rhonchi, no rales, no accessory muscle use Abdominal: soft, nondistended, nontender to palpation, no guarding Ext: muscle strength 5 out of 5 in all 4 extremities grossly, no gross muscle atrophy, no contractures, positive dorsalis pedis pulse bilateral, no edema Neuro: CN II-XI grossly intact, no gross focal neuro deficits Psych: Alert, oriented, appropriate affect and mood I saw and evaluated the patient during the hernandez and critical portions of this encounter, and discussed the case in detail with the resident author of this note, I agree with the Assessment and Plan, and my changes, if any, are highlighted in blue. Patient Condition at Discharge: Stable Plan - Discharge Summary Discharge Rx Participant: No New Discharge Prescriptions: New Ticagrelor [Brilinta] 90 mg PO BID #90 tab Metoprolol Tartrate [Lopressor] 50 mg PO BID #90 tab Atorvastatin [Lipitor] 80 mg PO HS #90 tab Continue Multivit-Min/Iron Fum/Folic AC [One-A-Day Women's Complete Tab] 1 tab PO DAILY Cholecalciferol (Vitamin D3) [Vitamin D3 (50 Mcg = 2000 Iu)] 50 mcg PO DAILY Zinc Gluconate [Zinc] 50 mg PO DAILY Melatonin 10 mg PO HS PRN PRN Reason: Insomnia Fish Oil/Dha/Epa [Fish Oil 1,200 mg Fish Oil] 4 cap PO DAILY Loratadine [Claritin] 10 mg PO DAILY metFORMIN HCL 500 mg PO BID-W/MEALS Irbesartan [Avapro] 300 mg PO DAILY Aspirin EC [Ecotrin Low Dose] 81 mg PO DAILY #90 tab buPROPion XL [Wellbutrin XL] 150 mg PO DAILY Fluticasone Nasal [place] [Flonase Nasal [place]] 1 spray EA NOSTRIL DAILY Fenofibrate [Lofibra] 160 mg PO DAILY Magnesium 250 mg PO DAILY Ascorbic Acid [Vitamin C] 1,000 mg PO DAILY Discontinued Atorvastatin [Lipitor] 40 mg PO DAILY Metoprolol Tartrate [Lopressor] 25 mg PO BID-W/MEALS Discharge Medication List Ascorbic Acid [Vitamin C] 1,000 mg PO DAILY 12/25/24 [History] Cholecalciferol (Vitamin D3) [Vitamin D3 (50 Mcg = 2000 Iu)] 50 mcg PO DAILY 12/25/24 [History] Fenofibrate [Lofibra] 160 mg PO DAILY 12/25/24 [History] Fish Oil/Dha/Epa [Fish Oil 1,200 mg Fish Oil] 4 cap PO DAILY 12/25/24 [History] Fluticasone Nasal [place] [Flonase Nasal [place]] 1 spray EA NOSTRIL DAILY 12/25/24 [History] Irbesartan [Avapro] 300 mg PO DAILY 12/25/24 [History] Loratadine [Claritin] 10 mg PO DAILY 12/25/24 [History] Magnesium 250 mg PO DAILY 12/25/24 [History] Melatonin 10 mg PO HS PRN 12/25/24 [History] Multivit-Min/Iron Fum/Folic AC [One-A-Day Women's Complete Tab] 1 tab PO DAILY 12/25/24 [History] Zinc Gluconate [Zinc] 50 mg PO DAILY 12/25/24 [History] buPROPion XL [Wellbutrin XL] 150 mg PO DAILY 12/25/24 [History] metFORMIN HCL 500 mg PO BID-W/MEALS 12/25/24 [History] Aspirin EC [Ecotrin Low Dose] 81 mg PO DAILY #90 tab 12/27/24 [Rx] Atorvastatin [Lipitor] 80 mg PO HS #90 tab 12/27/24 [Rx] Metoprolol Tartrate [Lopressor] 50 mg PO BID #90 tab 12/27/24 [Rx] Ticagrelor [Brilinta] 90 mg PO BID #90 tab 12/27/24 [Rx] Follow up Appointment(s)/Referral(s): [facility] [NON-STAFF] - 1 Week (please call and make appointment) Nnamdi Garcia MD [STAFF PHYSICIAN] - 1 Week (office closed. please call and make appointment ) Patient Instructions/Handouts: *Surgery [facility] - After Heart Catheterization - Rating Clerk Instructions, Heart Catheterization (DC), After Radial Heart Catheterization (GEN) Discharge Disposition: HOME SELF-CARE
== END 2024-12-27 13:55 | disposition home or self-care (01) | DRG 324 ==
LOC: EC 05:13 → 3SCARD 06:26
PROVIDERS: ADMIT Internal Medicine; ATTEND Internal Medicine
PROC: B2111ZZ Fluoroscopy of Multiple Coronary Arteries using Low Osmolar Contrast (ICD-10-PCS; 2024-12-25)
PROC: 4A023N7 Measurement of Cardiac Sampling and Pressure, Left Heart, Percutaneous Approach (ICD-10-PCS; 2024-12-25)
PROC: B240ZZ3 Ultrasonography of Single Coronary Artery, Intravascular (ICD-10-PCS; 2024-12-25)
PROC: 027035Z Dilation of Coronary Artery, One Artery with Two Drug-eluting Intraluminal Devices, Percutaneous Approach (ICD-10-PCS; principal; 2024-12-25 10:05)
PROC: 02F03ZZ Fragmentation in Coronary Artery, One Artery, Percutaneous Approach (ICD-10-PCS; 2024-12-25 10:05)
PROC: 02703ZZ Dilation of Coronary Artery, One Artery, Percutaneous Approach (ICD-10-PCS; 2024-12-25 10:05)
PROC: B240ZZ3 Ultrasonography of Single Coronary Artery, Intravascular (ICD-10-PCS; 2024-12-25 10:05)
DX: I21.4 Non-ST elevation (NSTEMI) myocardial infarction (principal); E11.65 Type 2 diabetes mellitus with hyperglycemia; I10 Essential (primary) hypertension; F17.200 Nicotine dependence, unspecified, uncomplicated; I25.10 Atherosclerotic heart disease of native coronary artery without angina pectoris; E78.5 Hyperlipidemia, unspecified; Z79.84 Long term (current) use of oral hypoglycemic drugs; Z79.82 Long term (current) use of aspirin; I25.2 Old myocardial infarction
CPT/HCPCS: 36415; 71045; 80048; 80053; 80061; 83036; 83735; 84484; 85025; 85610; 85730; 92972; 92978; 93005; 93306; 93458; 94760; 96365; 96366; 96368; 99291